=== PATIENT | male | born 1970 | race Caucasian/White ===

== ENCOUNTER 2016-08-26 20:30 | Emergency (ER) | payer OTHER ==
[~2016-08-26] VITALS: Ht 170.2 cm; Wt 98.9 kg
[~2016-08-26 20:30] MED LIST: BACTRIM,SEPT1 TABLET PO; FLAGYL500 MG PO; OXYCODONE HCL5 MG PO
[2016-08-26 21:21] LABS: HEMATOCRIT 42.3 % (38.0-50.0); MCH 30.2 PG (29.0-34.0); MCHC 34.5 G/DL (30.0-36.0); MCV 87.4 FL (86-99); MEAN PLAT.VOLUME 9.1 uM^3 (9.0-12.4); PLATELET COUNT 315 K/uL (156-360); RBC DIS.WIDTH-CV 12.3 % (11.8-14.6); RBC DIS.WIDTH-SD 39.1 % (39-53); RED BLOOD COUNT 4.84 M/uL (4.00-5.50); WHITE BLOOD COUNT 7.3 K/uL (4.1-10.2)
[2016-08-26 21:30] LABS: CHLORIDE 107 mEq/L (99-109); POTASSIUM 3.8 mEq/L (3.7-5.4); SODIUM 140 mEq/L (136-147)
[2016-08-26 21:31] LABS: GLUCOSE 108 mg/dL (70-99)
[2016-08-26 21:33] LABS: ANION GAP 10 MEQ/L (2-14)
[2016-08-26 21:35] LABS: GFR ESTIMATE (CALCULATED) > 59 mL/min/
[2016-08-26 21:36] LABS: UREA NITROGEN (BUN) 17 mg/dL (9-23)
[2016-08-26 21:42] LABS: TROP-I INTERPRETATION NEGATIVE; TROPONIN-I < 0.01 ng/mL (0.0-0.30)
[2016-08-26 23:21] LABS: TROP-I INTERPRETATION NEGATIVE; TROPONIN-I < 0.01 ng/mL (0.0-0.30)
[2016-08-26 23:37] VITALS: BP 130/98
== END 2016-08-26 23:38 | disposition home or self-care (01) ==
LOC: EME 20:30
PROVIDERS: Nurse Practitioner Family
DX: R07.89 Other chest pain (principal); I10 Essential (primary) hypertension; Z87.891 Personal history of nicotine dependence
CPT/HCPCS: 71020; 80048; 84484; 85027; 93005; 99281; 99285